=== PATIENT | male | born 1985 | race Caucasian/White ===

== ENCOUNTER 2022-11-29 10:24 | Emergency (ER) | payer SELFPAY ==
[~2022-11-29] VITALS: Ht 170.2 cm; Wt 77.0 kg
[2022-11-29 10:27] VITALS: BP 148/86; PULSE 90; RESP 16; TEMP 98.5; O2SAT 98
[2022-11-29] MEDS ORDERED: OLANZAPINE 5MG TABLET ODT PO SCH (12:00)
[2022-11-29 12:50] LABS: BASOPHILS % 0.5 % (0.0-2.0); HEMATOCRIT. 36.2 % (42.0-52.0); HEMOGLOBIN. 12.1 g/dL (14.0-18.0); LYMPHOCYTES % 14.3 % (20.0-50.0); MEAN CORPUSCULAR HEMOGLOBIN 27.7 pg (28.0-32.0); MEAN PLATELET VOLUME 6.9 fl (7.4-10.4); MONOCYTES % 4.5 % (2.0-8.0); NEUTROPHILS % 80.7 % (40.0-76.0); PLATELET 256 x1000/uL (130-400); RED BLOOD CELL COUNT 4.36 mill/uL (4.7-6.1); RED CELL DISTRIBUTION WIDTH 15.5 % (11.6-14.6)
[2022-11-29 12:58] LABS: CHLORIDE 105 mEq/L (98-107)
[2022-11-29 13:17] LABS: ETHANOL BLOOD < 10 mg/dL (-10)
== END 2022-11-29 16:54 | disposition home or self-care (01) ==
LOC: ER 10:38
DX: R46.2 Strange and inexplicable behavior (principal)
CPT/HCPCS: 36415; 80053; 80307; 80320; 80329; 84443; 85025; 99283; G0480